=== PATIENT | female | born 2000 | race Caucasian/White ===

== ENCOUNTER 2022-11-02 16:15 | Emergency (ER) | payer OTHER, SELFPAY ==
[2022-11-02 16:37] VITALS: BP 116/74; PULSE 102; RESP 16; TEMP 36.4; O2SAT 97; BMI 25.9
--- NOTE | 2022-11-02 17:45 | ED.FEMALEGU ---
HPI - Female Genitourinary General Chief complaint: Urogenital-Female <Trinh Olmedo NP - Last Filed: 11/02/22 18:26> Stated complaint: /discharge? <Trinh Olmedo NP - Last Filed: 11/02/22 18:26> Time Seen by Provider: 11/02/22 17:41 <Trinh Olmedo NP - Last Filed: 11/02/22 18:26> Source: patient <Trinh Olmedo NP - Last Filed: 11/02/22 18:26> Mode of arrival: ambulatory <MALLORY Mcneil Last Filed: 11/02/22 18:26> Limitations: no limitations <Trinh Olmedo NP - Last Filed: 11/02/22 18:26> History of Present Illness HPI Narrative: 22 yo female previously healthy currently 26 weeks with an ALFREDA of 02[birth year] here with complaints of green vaginal discharge noted today. Patient denies any pelvic pain, abdominal discomfort, urinary symptoms, fevers, chills, vaginal bleeding, vomiting. Patient reports that she did have some care in [place] but moved here and is planning on living here. She has no insurance here. She has no current OB here. She has had a normal to date per patient. Prior to coming here patient did have chlamydia but tells me that she retested prior to leaving [place] and was negative after completing treatment. Patient is here with her partner. <Trinh Olmedo NP - Last Filed: 11/02/22 18:26> Related Data Home medications: Previous Rx's Medication Instructions Recorded miconazole nitrate 100 mg vaginal 100 mg vaginal BEDTIME 7 days #7 ea 11/02/22 suppository <Trinh Olmedo NP - Last Filed: 11/02/22 18:26> Allergies/Adverse reactions: Allergies Allergy/AdvReac Type Severity Reaction Status Date / Time Unable to Assess Allergy Verified 11/02/22 16:51 <MALLORY Mcneil Last Filed: 11/02/22 18:26> Review of Systems Review of Systems: Yes all other systems are reviewed and are negative <MALLORY Mcneil Last Filed: 11/02/22 18:26> Constitutional: Constitutional: Reports no additional constitutional complaints, Denies body ache(s), Denies chills, Denies fever(s), Denies headache(s) and Denies weakness <Trinh Olmedo [employer] - Last Filed: 11/02/22 18:26> Eyes: Eyes: Reports no additional eye complaints and Denies change in vision <Trinh Olmedo [employer] - Last Filed: 11/02/22 18:26> ENT: Reports system reviewed and no additional complaints, except as documented, Denies dizziness, Denies headache(s), Denies nasal congestion, Denies nasal discharge and Denies neck pain <Trinh Olmedo [employer] - Last Filed: 11/02/22 18:26> Cardiovascular: Cardiovascular: Reports no additional cardiovascular complaints, Denies chest pain, Denies leg edema and Denies dyspnea <Trinh Olmedo [employer] - Last Filed: 11/02/22 18:26> Respiratory: Respiratory: Reports no additional respiratory complaints, Denies cough and Denies dyspnea <Trinh Olmedo [employer] - Last Filed: 11/02/22 18:26> Gastrointestinal: Gastrointestinal: Reports no additional gastrointestinal complaints, Denies abdominal pain, Denies diarrhea, Denies nausea and Denies vomiting <Trinh Olmedo [employer] - Last Filed: 11/02/22 18:26> Genitourinary: Genitourinary: Reports no additional female genitourinary complaints, Denies hematuria, Denies genital pruritis, Denies dysuria, Denies pelvic pain, Denies urinary incontinence, Denies urinary hesitancy, Denies urinary urgency, Reports vaginal discharge, Denies vaginal dryness, Denies vaginal odor and Denies vaginal pruritus <Trinh Olmedo [employer] - Last Filed: 11/02/22 18:26> Musculoskeletal: Musculoskeletal: Reports no additional musculoskeletal complaints, Denies back pain, Denies arthralgias, Denies joint swelling, Denies neck pain, Denies numbness and Denies tingling <Trinh Olmedo [employer] - Last Filed: 11/02/22 18:26> Integumentary/Breasts: Skin/Breast: Reports system reviewed and no additional complaints, except as docu and Denies rash <Trinh Olmedo NP - Last Filed: 11/02/22 18:26> Neurologic: Reports system reviewed and no additional complaints, except as documented, Denies Abnormal speech present, Denies dizziness, Denies headache(s), Denies numbness, Denies tingling and Denies weakness <Trinh Olmedo NP - Last Filed: 11/02/22 18:26> [facility] Past Medical History Attestation statement: The following information was validated with the patient. <Trinh Olmedo NP - Last Filed: 11/02/22 18:26> Source: old records reviewed and nursing notes reviewed <Trinh Olmedo NP - Last Filed: 11/02/22 18:26> Social History Social History: Social History Advance Directives: No Advance Directives Information Provided: No <Trinh Olmedo NP - Last Filed: 11/02/22 18:26> Physical Exam Vital Signs: Vital Signs: Last Vital Signs Temp 97.6 F 11/02/22 16:37 Pulse 102 H 11/02/22 16:37 Resp 16 11/02/22 16:37 BP 116/74 11/02/22 16:37 Pulse Ox 97 11/02/22 16:37 O2 Del Method Room Air 11/02/22 16:37 BMI result Body Mass Index 25.9 <Trinh Olmedo NP - Last Filed: 11/02/22 18:26> Vital Signs: Last Vital Signs Temp 97.6 F 11/02/22 16:37 Pulse 102 H 11/02/22 16:37 Resp 16 11/02/22 16:37 BP 116/74 11/02/22 16:37 Pulse Ox 97 11/02/22 16:37 O2 Del Method Room Air 11/02/22 16:37 BMI result Body Mass Index 25.9 <EMI Roberson - Last Filed: 11/05/22 08:20> Const: General: cooperative, healthy appearing, comfortable and no acute distress <Trinh Olmedo NP - Last Filed: 11/02/22 18:26> Orientation/consciousness: patient oriented x3 <Trinh Olmedo [employer] - Last Filed: 11/02/22 18:26> Limitations: no limitations <Trinh Olmedo [employer] - Last Filed: 11/02/22 18:26> HEENT: Head: Yes normal to inspection <Trinh Olmedo [employer] - Last Filed: 11/02/22 18:26> Ears: hearing grossly normal bilaterally <Trinh Olmedo [employer] - Last Filed: 11/02/22 18:26> General nose exam: Normal external nose present <Trinh Olmedo [employer] - Last Filed: 11/02/22 18:26> Face and sinus: Yes normal facial exam <Trinh Olmedo, [employer] - Last Filed: 11/02/22 18:26> Mouth: Normal oral and palatal mucosa present <Trinh Olmedo [employer] - Last Filed: 11/02/22 18:26> Throat: Yes posterior oropharynx normal <Trinh Olmedo [employer] - Last Filed: 11/02/22 18:26> Eyes: General: appearance normal, both eyes and all related structures <Trinh Olmedo [employer] - Last Filed: 11/02/22 18:26> Pupils: Equal, round and reactive pupils present <Trinh Olmedo [employer] - Last Filed: 11/02/22 18:26> Neck: Neck: Yes normal visual inspection <Trinh Olmedo [employer] - Last Filed: 11/02/22 18:26> Chest: Chest palpation & inspection: normal inspection of the chest <Trinh Olmedo [employer] - Last Filed: 11/02/22 18:26> Resp: Effort & Inspection: normal respiratory effort <Trinh Olmedo [employer] - Last Filed: 11/02/22 18:26> Auscultation: clear to auscultation bilaterally <Trinh Olmedo [employer] - Last Filed: 11/02/22 18:26> Cardio: Rate: regular rate <Trinh Olmedo [employer] - Last Filed: 11/02/22 18:26> Rhythm: regular rhythm <Trinh Pascucci, [employer] - Last Filed: 11/02/22 18:26> Peripheral pulses: Peripheral pulses 2+ throughout <Trinh Honorio, [employer] - Last Filed: 11/02/22 18:26> GI: Other: +gravid uterus FHT 145 <Trinh Honorio, [employer] - Last Filed: 11/02/22 18:26> Inspection: Yes normal to inspection <Trinh Honorio, [employer] - Last Filed: 11/02/22 18:26> Palpation (GI): nontender <Trinh Honorio, [employer] - Last Filed: 11/02/22 18:26> : 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 <Trinh Honorio, [employer] - Last Filed: 11/02/22 18:26> Back/Spine/Pelvis: Thoracic/Lumbar Spine: thoracic and lumbar spine normal to inspection <Trinh Honorio, [employer] - Last Filed: 11/02/22 18:26> Skin: General skin exam: no rashes or lesions noted <Trinh Honorio, [employer] - Last Filed: 11/02/22 18:26> Neuro: General: patient oriented x3, no focal motor deficits and normal sensation to monofilament <Trinh Honorio, [employer] - Last Filed: 11/02/22 18:26> Cranial nerves: Yes Equal, round and reactive pupils present <Trinh Honorio, [employer] - Last Filed: 11/02/22 18:26> Cognition (Neuro): normal cognition <Trinh Diamondi, [employer] - Last Filed: 11/02/22 18:26> Speech: No Abnormal speech present <Trinh Honorio, [employer] - Last Filed: 11/02/22 18:26> Gait exam (Neuro): Normal gait present <Trinh Honorio, [employer] - Last Filed: 11/02/22 18:26> Motor exam (neuro): 5/5 motor strength present throughout <Trinh Honorio, [employer] - Last Filed: 11/02/22 18:26> Extrem: General: Yes normal to inspection <Trinh Olmedo NP - Last Filed: 11/02/22 18:26> Course Course Course Narrative: Exam is consistent with vaginitis. I did send testing for gonorrhea, chlamydia, Wally vaginosis, yeast and Trichomonas. Patient has low concern for STI. She tells me she was tested the last few weeks and was negative. Therefore she would like to defer treatment until her testing is resulted which she is aware will take 1-2 days. I will treat her prophylactically for Julianna as this is consistent with her exam. We did speak at length about establishing an Ob here in [place] as she plans on staying here. We did also discuss any worrisome signs and symptoms of when to return to the emergency room such as abdominal pain, vaginal bleeding. Patient is comfortable with this plan <Trinh Olmedo NP - Last Filed: 11/02/22 18:26> Reevaluation(s) Reevaluation #1: 11/05/2022 0819: Patient came back positive for yeast as well as gardnerella. Anti-fungal sent into the pharmacy. <EMI Roberson - Last Filed: 11/05/22 08:20> Medical Decision Making Medical Decision Making [facility] Narrative: 22 yo female currently 26 weeks here with complaints of green vaginal discharge today with no complaints of urinary symptoms, pelvic pain, vaginal bleeding, fever or vomiting. Will need UA, CT NG, FHR, BV panel <Trinh Olmedo NP - Last Filed: 11/02/22 18:26> Differential Diagnosis Differential Diagnoses: The differential diagnosis associated with the presentation includes <Trinh Olmedo NP - Last Filed: 11/02/22 18:26> vaginitis, STI Low concern for PID, TOA, pre-term labor <Trinh Olmedo NP - Last Filed: 11/02/22 18:26> Lab Data [facility] Lab Attestation statement: I reviewed the patient's lab results. <Trinh Olmedo NP - Last Filed: 11/02/22 18:26> Labs: Lab Results 11/02/22 11/02/22 11/02/22 Range/Units 17:42 17:42 18:17 Urine Color Yellow Urine Appearance Clear Urine pH 6.5 (5.0-9.0) Ur Specific [place] 1.025 (1.005-1.025) Urine Protein Trace (Neg-Trace) mg/dL Urine Glucose (UA) Negative (Negative) mg/dL Urine Ketones Trace (Negative) mg/dL Urine Blood Negative (Negative) Urine Nitrite Negative (Negative) Ur Leukocyte Esterase Large (3+) H (Negative) Urine RBC 0-2 (0-2) /HPF Urine WBC 0-5 (0-5) /HPF Ur Squamous Epith Cells 11-20 (0-2) /HPF Urine Bacteria 2+ (None Seen) Hyaline Casts 0-2 (0-2) /LPF Julianna species DNA Positive A (Negative) Chlam trachomat DNA PCR NOT DETECTED (Not Detect.) Gardnerella DNA Probe Positive A (Negative) N.gonorrhoeae DNA (PCR) NOT DETECTED (Not Detect.) Trichomonas DNA Probe Negative (Negative) <Trinh Olmedo NP - Last Filed: 11/02/22 18:26> Lab Results 11/02/22 11/02/22 11/02/22 Range/Units 17:42 17:42 18:17 Urine Color Yellow Urine Appearance Clear Urine pH 6.5 (5.0-9.0) Ur Specific [place] 1.025 (1.005-1.025) Urine Protein Trace (Neg-Trace) mg/dL Urine Glucose (UA) Negative (Negative) mg/dL Urine Ketones Trace (Negative) mg/dL Urine Blood Negative (Negative) Urine Nitrite Negative (Negative) Ur Leukocyte Esterase Large (3+) H (Negative) Urine RBC 0-2 (0-2) /HPF Urine WBC 0-5 (0-5) /HPF Ur Squamous Epith Cells 11-20 (0-2) /HPF Urine Bacteria 2+ (None Seen) Hyaline Casts 0-2 (0-2) /LPF Julianna species DNA Positive A (Negative) Chlam trachomat DNA PCR NOT DETECTED (Not Detect.) Gardnerella DNA Probe Positive A (Negative) N.gonorrhoeae DNA (PCR) NOT DETECTED (Not Detect.) Trichomonas DNA Probe Negative (Negative) <EMI Roberson - Last Filed: 11/05/22 08:20> Discharge Plan Discharge Clinical Impression: Vaginitis <Trinh Olmedo NP - Last Filed: 11/02/22 18:26> Patient Disposition: Home, Self-Care <Trinh Olmedo NP - Last Filed: 11/02/22 18:26> Instructions: Vaginal Discharge (ED) <Trinh Olmedo NP - Last Filed: 11/02/22 18:26> Additional Instructions: Return for abdominal pain, vaginal bleeding Follow-up with an Ob Continue vitamin <Trinh Olmedo NP - Last Filed: 11/02/22 18:26> Prescriptions: New miconazole nitrate 100 mg suppository 100 mg vaginal BEDTIME 7 Days Qty: 7 0RF <Trinh Olmedo NP - Last Filed: 11/02/22 18:26> Referrals: Ashwin Kent MD [Physician] - 1 week <Trinh Olmedo NP - Last Filed: 11/02/22 18:26> Interventions: ED Discharge Assessment Last Done: 11/02/22 18:39 <Trinh Olmedo NP - Last Filed: 11/02/22 18:26> Discharge Date/Time: 11/02/22 18:40 <Trinh Olmedo NP - Last Filed: 11/02/22 18:26>
--- NOTE | 2022-11-02 17:51 | PC.NURSE ---
doppler heart rate 145
[2022-11-02 17:54] LABS: Appearance Urine Clear; Color Urine Yellow; Glucose Urine UA Negative (Negative); Leukocyte Esterase Urine Large (3+) (Negative); Nitrite Urine Negative (Negative); PH 6.5 (5.0-9.0); Specific Gravity - Urine 1.025 (1.005-1.025); UMIC TRIGGER UACC YES; Urine Blood Negative (Negative); Urine Ketones Trace mg/dL (Negative); Urine Protein Trace mg/dL (Neg-Trace)
[2022-11-02 18:19] LABS: Bacteria Urine 2+ (None Seen); Hyaline Casts Urine 0-2 /LPF (0-2); RBC Urine 0-2 /HPF (0-2); UACC Culture Trigger YES; WBC Urine 0-5 /HPF (0-5)
[2022-11-03 05:20] LABS: CT PCR NOT DETECTED (Not Detect.); NG PCR NOT DETECTED (Not Detect.)
[2022-11-03 10:20] LABS: BV Int Neg Control Negative (Negative); BV Int Pos Control Positive (Positive)
== END 2022-11-02 18:40 | disposition home or self-care (01) ==
PROVIDERS: Nurse Practitioner Family; Emergency Provider Emergency Medicine
DX: O23.592 Infection of other part of genital tract in pregnancy, second trimester (principal); N89.8 Other specified noninflammatory disorders of vagina; Z3A.26 26 weeks gestation of pregnancy
CPT/HCPCS: 0353U; 81001; 87086; 87147; 87480; 87510; 87660; 99282; 99283